=== PATIENT | male | born 1955 | race Caucasian/White ===

== ENCOUNTER 2020-01-08 09:36 | Outpatient (CLI) | payer OTHER, SELFPAY ==
--- NOTE | ~2020-01-08 | US_ITS ---
EXAMINATION: US right upper quadrant DATE: 01/08/2020 10:28 INDICATION: Abnormal liver function tests. TECHNIQUE: Multiple grayscale and Doppler ultrasound images of the abdomen were obtained. COMPARISON: Ultrasound 05/12/2019, CT 05/17/2019 FINDINGS: The visualized portions of the head and body of the pancreas are normal. The liver is navin l without focal lesion. No liver surface nodularity. There is normal flow in main portal vein. The ga llbladder is normal in size. No gallstones or gallbladder wall thickening. There was no sonographic M urphy sign. The common duct is normal and measures 2 mm. IMPRESSION: 1. Normal right upper quadrant ultrasound. Reviewed, dictated and finalized at location B.
== END 2020-01-08 09:37 | disposition home or self-care (01) ==
PROVIDERS: PCP Internal Medicine; Visit Provider Internal Medicine
DX: R74.8 Abnormal levels of other serum enzymes (principal)
CPT/HCPCS: 76705

== ENCOUNTER 2020-03-17 02:21 | Outpatient (CLI) | payer OTHER, SELFPAY ==
[2020-03-17 19:02] LABS: SARS-CoV-2 RNA PCR Negative
== END 2020-03-17 02:22 | disposition home or self-care (01) ==
LOC: ANHCOVIDDT 02:21
PROVIDERS: PCP Internal Medicine; Visit Provider Plastic Surgery
DX: Z01.812 Encounter for preprocedural laboratory examination (principal); Z20.828 Contact with and (suspected) exposure to other viral communicable diseases
CPT/HCPCS: 87635; C9803; U0003

== ENCOUNTER 2020-03-17 08:34 | Outpatient (CLI) | payer OTHER, SELFPAY ==
--- NOTE | 2020-03-17 09:01 | ECG_ITS ---
Measurements Intervals Register Rate: 66 P: 11 NC: 158 QRS: -12 QRSD: 108 T: 13 QT: 366 QTc: 385 Interpretive Statements SINUS RHYTHM LOW QRS VOLTAGE IN PRECORDIAL LEADS POOR R WAVE PROGRESSION, ANTERIOR LEADS BASELINE ARTIFACT- I, II, III, AVR, AVL, AVF BORDERLINE ECG Electronically Signed On 03-17-2020 9:07:49 CDT by Darren Biswas D.O.
[2020-03-17 09:13] LABS: Basophils Absolute Auto 0.1 K/mm3 (0.0-0.1); Eosinophils Absolute Auto 0.3 K/mm3 (0-0.3); Hematocrit 41.7 % (42.0-52.0); Hemoglobin 14.4 g/dL (14.0-18.0); Immature Granulocyte Absolute 0.05 K/mm3 (0.00-0.031); Immature Granulocyte Percent A 0.7 % (0-0.5); Lymphocytes Absolute Auto 2.09 K/mm3 (0.9-3.2); Lymphocytes Percent Auto 29.9 % (18.3-44.2); Mean Corpuscular HGB Conc 34.5 g/dl (32-36); Mean Corpuscular Hemoglobin 31.6 pg (26-34); Mean Corpuscular Volume 91.4 fl (80-100); Mean Platelet Volume 10.6 fl (7.4-10.4); Monocytes Absolute Auto 0.5 K/mm3 (0.1-0.6); Monocytes Percent Auto 7.6 % (2.6-8.5); Neutrophils Percent Auto 56.8 % (45.5-73.1); Platelet Count Result 206 k/mm3 (150-375); Red Blood Count 4.56 M/mm3 (4.6-6.20); Red Cell Distribution Width 13.5 % (11.5-14.5)
[2020-03-17 09:21] LABS: Alanine Aminotransferase 35 U/L (4-50); Albumin Level 4.3 g/dL (3.5-5.1); Alkaline Phosphatase 85 U/L (38-126); Anion Gap 6 mmol/L (8-16); Aspartate Amino Transferase 39 U/L (17-59); Blood Urea Nitrogen 13 mg/dL (9-20); Calcium 9.3 mg/dL (8.4-10.2); Carbon Dioxide 34 mmol/L (22-30); Chloride 100 mmol/L (98-107); Estimated Glomerular Filt Rate > 60; Glucose 124 mg/dL (75-110); Sodium 140 mmol/L (137-145)
== END 2020-03-17 08:35 | disposition home or self-care (01) ==
LOC: ANHSURGERY 08:34
PROVIDERS: Surgery; PCP Internal Medicine; Visit Provider Plastic Surgery
DX: Z01.818 Encounter for other preprocedural examination (principal); K42.9 Umbilical hernia without obstruction or gangrene; I10 Essential (primary) hypertension; R94.31 Abnormal electrocardiogram [ECG] [EKG]
CPT/HCPCS: 36415; 80053; 85025; 86850; 86900; 86901; 93005

== ENCOUNTER 2020-03-19 01:00 | Day surgery (SDC) | payer OTHER, SELFPAY ==
[2020-03-06 11:43] VITALS: BMI 38.5
[2020-03-19] VITALS (12 sets, daily range): BP systolic 93–145; BP diastolic 62–84; PULSE 58–83; RESP 15–21; TEMP 36.1–36.5; O2SAT 90–98
--- NOTE | 2020-03-19 07:06 | WPDHPUPDATE1 ---
History and Physical Update Update Date/Time: 03/19/20 07:06 History and Physical has been reviewed, including an updated exam of the patient. There are NO changes in the patient's condition. Risks, benefits, and alternatives have been discussed and questions answered. Patient agrees to proceed with procedure.
--- NOTE | 2020-03-19 07:07 | WPDHPUPDATE1 ---
History and Physical Update Update Date/Time: 03/19/20 07:07 History and Physical has been reviewed, including an updated exam of the patient. There are NO changes in the patient's condition. Risks, benefits, and alternatives have been discussed and questions answered. Patient agrees to proceed with procedure.
--- NOTE | 2020-03-19 11:19 | WPDHPUPDATE1 ---
History and Physical Update Update Date/Time: 03/19/20 11:19 History and Physical has been reviewed, including an updated exam of the patient. There are NO changes in the patient's condition. Risks, benefits, and alternatives have been discussed and questions answered. Patient agrees to proceed with procedure.
[2020-03-19] MEDS: LACTATED RINGERS 1,000 ML 30 ML IV CONT ×2 (11:20→14:17)
--- NOTE | 2020-03-19 11:27 | WPDANESEPPF ---
Anes - Initial Pre Proc Eval Procedure: Operation Date: 03/19/20 13:00 Proposed Procedures p Excision Neoplasm Unspecified Behavior Left Lower Eyelid with Frozen Section and Local Tissue Transfer - Edgar Agarwal MD s Laparoscopic Umbilical Hernia Repair with Mesh, Possible Open - Renny Multani MD Date/Time: 03/19/20 11:27 Surgeon: Edgar Agarwal MD Pre Op Diagnosis: neoplasm unspec unspecified behavior, umb hernia Patient Data Age: 64 Gender: M Height: 5 ft 2 in Weight: 97 kg Last Vital Signs Temp 97.0 F L 03/19/20 10:58 Pulse 68 03/19/20 10:58 Resp 18 03/19/20 10:58 BP 145/84 H 03/19/20 10:58 Pulse Ox 98 03/19/20 10:58 Allergies Allergy/AdvReac Type Severity Reaction Status Date / Time No Known Allergies Allergy Verified 03/19/20 11:02 Home Medications Medication Instructions Recorded Confirmed Type aspirin [Aspirin Low Dose] 81 mg PO DAILY 05/12/19 03/12/20 History atorvastatin 20 mg PO DAILY 05/12/19 03/12/20 History levothyroxine 75 mcg PO DAILY 05/12/19 03/12/20 History potassium chloride 20 meq PO DAILY 30 Days #30 tablet 05/18/19 03/12/20 Rx lisinopril 10 mg PO DAILY 03/06/20 03/12/20 History multivitamin 1 tablet PO DAILY 03/06/20 03/12/20 History Patient hx anesthesia problems: none Family hx anesthesia problems: none PMFSH Past Medical History Medical History Dyslipidemia (Unknown) History of pancreatitis Hypertension (Unknown) Hypothyroidism Obstructive sleep apnea (Unknown) Umbilical hernia without obstruction and without gangrene (Unknown) Surgical History Surgical History History of hand surgery Right hand surgery after crush injury. Family History Family History Son Diabetes mellitus Father Family history of congestive heart failure Social History Social History Social History: The patient is and lives with his in [place], [place]. 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 He designates his , Nicole, as his surrogate decision-maker and he wishes to be full code. He is a lifelong non-smoker. He drinks alcohol very rarely and on social occasions, maybe a couple times a year. No illicit drug use. Smoking status: Never smoker Spiritual care concerns: No Anes - Eval Final PreProcedure Day of Procedure 03/19/20 11:27 Patient weight: morbidly obese Heart: regular rate and rhythm Lungs: clear to auscultation Airway: Mallampati scale class III Neurological: alert and oriented Last oral intake: >/= 8 hours ASA classification: III Emergent: no Anesthetic plan: proceed Anesthesia type and monitoring: general ETT and standard monitoring Informed Consent: The patient's anesthetic plan and its attendant risks and benefits were discussed with the patient/family/POA. Questions were solicited and answers provided to the satisfaction of the patient/family/POA.
[2020-03-19] MEDS: ACETAMINOPHEN 500 MG TABLET 1000 MG PO (11:30)
[2020-03-19] MEDS: KETOROLAC 15 MG/ML VIAL (*BKC) IV PUSH (11:30)
[2020-03-19] MEDS: ceFAZolin 2 GM/D5W 50 ML 2 GM/50 ML BAG IVPB (11:50)
--- NOTE | 2020-03-19 12:23 | SUR.OPER ---
SPECIMEN GIVEN TO LULA IN PATHOLOGY BY [facility] AT 0527
[2020-03-19] MEDS: BUPIVACAINE/EPINEPHRINE 0.5% 10 ML VIAL 20 ML INFILTRATE (12:46)
[2020-03-19] MEDS: LIDO 1%/EPINEPHRINE 1:100,000 20 ML VIAL INFILTRATE (12:47)
--- NOTE | 2020-03-19 13:27 | PM.OP ---
Procedure Note - Brief Procedure Note - Brief Date of procedure: 03/19/20 Pre-op diagnosis: neoplasm unspec unspecified behavior, umb hernia Post-op diagnosis: same Procedure performed: Dr. Agarwal Plastic Surgery: Excision of BCC of left lower eyelid with FS and FTSG 2.0 sq cm. Anesthesia: GETA Surgeon: Edgar Agarwal MD Estimated blood loss (mL): 1 Drains: No Packing: No Pathology: yes Complications: No immediate complications Condition: stable Disposition: other (The patient was turned over to Dr Multani for his planned other procedure.)
--- NOTE | 2020-03-19 13:33 | PM.PROC ---
Procedure Note - Detailed Date of procedure: 03/19/20 Pre-op diagnosis: neoplasm unspec unspecified behavior, umb hernia Post-op diagnosis: other (BCC of left lower eyelid.) Procedure performed: 2 cm excision of basal cell carcinoma of the left lower eyelid with frozen section and full-thickness skin graft 2 sq cm Description of procedure: The site was marked on the patient's upper cheek over the orbicularis in the holding area. He was taken to the operating room placed supine on the operating table. Time-out was held and confirmed. He was given general anesthesia in preparation for the 2nd part of his surgery today which is umbilical hernia repair by Dr. Multani. The Face was prepped and draped in usual fashion. The site was a nodular basal cell carcinoma and markings were not made. The site was infiltrated with 1% lidocaine with epinephrine. A circular excision was carried out. The most inferior aspect was marked with a suture for 12:00 o'clock. The specimen was sent to pathology. The pathologist reports basal cell carcinoma margins free. This resection had included some orbicularis madison muscle. We attempted to devise a method for direct suture closure of this however the patient's lower eyelid is quite lax as is the lateral canthal tendon. I determined that a full-thickness skin graft would be in his best interest. The left upper neck postauricular area already been prepped. We anesthetized that with 1% lidocaine with epinephrine and removed the full-thickness graft of appropriate size. The wound was closed with intradermal 4-0 Vicryl suture and glue. The graft was carefully defatted and inset with chromic suture including quilting stitches through the midportion. Bleeding was minimal. The patient had been given 2 g of Ancef preop anticipation of his general surgery procedure to follow immediately. No additional prescriptions were given to him by me he was given instructions in wound care and follow-up Anesthesia: GETA Surgeon: Edgar Agarwal MD Estimated blood loss (mL): 1 Drains: No Packing: No Pathology: yes Complications: No immediate complications Condition: stable Disposition: other (Dr Multani continued the anesthesia for his general surgery procedure.)
--- NOTE | 2020-03-19 13:51 | SUR.OPER ---
2nd timeout completed with Dr. Multani at 1329.
--- NOTE | 2020-03-19 14:12 | PM.PROC ---
Procedure Note - Detailed Date of procedure: 03/19/20 Pre-op diagnosis: neoplasm unspec unspecified behavior, umb hernia Umbilical hernia Post-op diagnosis: same Procedure performed: Laparoscopic umbilical hernia repair with mesh Description of procedure: DESCRIPTION OF PROCEDURE: The patient was placed in the supine position on the operative table and after induction of adequate general endotracheal anesthesia by [facility], the entire abdomen was prepped and draped in usual sterile fashion and the head placed slightly up. An OG tube was in place had been placed on suction. An Ioban drape was used to prevent contact of the mesh with the skin during this clean case. Following this, local anesthetic was placed and a spot selected about two fingerbreadths below the costal margin on the left and a small incision made after instilling local anesthetic using 0.25% Marcaine with epinephrine. Following this, a Veress needle technique using the water drop test was completed. Using 2 towel clips on the skin, I carefully elevated the skin and then passed the Veress needle into the abdomen and we could see that the saline droped through the Veress needle easily. CO2 gas was connected and the abdomen was insufflated to 14 mm Hg pressure after starting out at around 9. Following this, 0 degree 5 mm laparoscope was placed inside a 5 mm trocar, which was carefully twisted into the abdomen without difficulty, seeing a open pneumoperitoneum as we entered. Thus, the trocar was removed, the sleeve confirmed to be nicely within the abdomen, and we carefully inspected the abdomen. Careful inspection of the abdomen revealed no inguinal hernias. A small defect in the umbilicus that was actually difficult to see initially, but after placing a 12 mm port in the left lower quadrant under direct vision with the laparoscope, we could see up into a 11 mm defect that had been measured then with an instrument with a known cm marker. There was no incarceration of any omentum or any other adhesions to the underside of the umbilicus. With external compression we can see a little preperitoneal fat drop down from the umbilical hernia defect this was grasped with a [place] dissector and using cautery we removed 2 small pieces of preperitoneal fat from the umbilical hernia defect. This was pre-peritoneal fat and it was removed from the abdomen and passed off the field but not sent as specimen. Following this, we carefully planned by measuring the defect. Our mesh, a circular 11 cm piece of Ventra-lite piece of mesh was chosen, so that we would have 4.5 cm of overlap in all directions over the circular umbilical defect. Following this,after it was hydrated the ventra-lite balloon hernia system mesh was rolled and this was inserted through the 12 mm port after rolling it to protect the absorbable covering on the downside of the mesh. A black silk suture was placed through the blue loop that is used to extract the tubing for the balloon positioning system such that I could grab this and pull it up through the umbilical area with a suture Passer. I used the suture passer after making a small opening with an 11 blade knife after placing local anesthetic directly in the lower center portion of the umbilicus. The suture passer was used to grasp this centering silk stitch on the piece of mesh, and this was pulled up, centering it. Then I inflated the balloon system which brought the mesh up against the anterior abdominal wall centering it nicely with the center of the 11 centimeter piece of mesh over the center of the umbilical defect. Two rows of tacks using the an absorbable Tacker were completed circumferentially at the edge and then about a centimeter back from the edge of the circular piece of mesh. This seemed to give good security to the mesh completely covering the umbilical defect. Once this was completed, we carefully removed the tacker, snipped the tubing on the balloon syste
[2020-03-19] MEDS: fentaNYL CITRATE INJ (*CRX) 100 MCG/2 ML VIAL 25 MCG IV PUSH ×8 (15:03→15:30)
[2020-03-19] MEDS: oxyCODONE HCL (*CRX) 5 MG TAB IR PO (16:10)
== END 2020-03-19 17:21 | disposition home or self-care (01) ==
PROVIDERS: Surgery; PCP Internal Medicine; Visit Provider Plastic Surgery
PROC: (CPT 11642; principal; 2020-03-19 13:00)
PROC: (CPT 49585; 2020-03-19 13:00)
DX: K42.9 Umbilical hernia without obstruction or gangrene (principal); C44.1192 Basal cell carcinoma of skin of left lower eyelid, including canthus; I10 Essential (primary) hypertension; E78.5 Hyperlipidemia, unspecified; E03.9 Hypothyroidism, unspecified; G47.33 Obstructive sleep apnea (adult) (pediatric); Z79.82 Long term (current) use of aspirin; E66.01 Morbid (severe) obesity due to excess calories; Z68.39 Body mass index [BMI] 39.0-39.9, adult
CPT/HCPCS: 49585; 11642; 15260; 88305; 88331; A9270; C1781; J0690; J1100; J1885; J2250; J2405; J2704; J3010; J7120

== ENCOUNTER 2020-12-18 09:47 | Outpatient (CLI) | payer OTHER, SELFPAY ==
--- NOTE | ~2020-12-18 | US_ITS ---
EXAMINATION: US abdomen limited EXAM DATE: 12/18/2020 10:50 INDICATION: Elevated liver enzymes. TECHNIQUE: Multiple grayscale and Doppler images of the abdomen right upper quadrant were obtained (odm y a technologist who performed the scan) and subsequently reviewed. Comparison is made to prior exami nation from 06/09/2019. FINDINGS: The pancreatic head and body are normal in appearance. The pancreatic tail is not visualized. The l iver has normal echogenicity steatosis and contour. There are no focal liver lesions identified. T here is no evidence of intrahepatic biliary duct dilation. Portal venous flow was seen in the hepato pedal, normal direction and has normal Doppler waveform. No right-sided hydronephrosis. Common bile duct measures 4 mm, which is normal. The gallbladder wall is normal in thickness, with ex pected amount of distention. No sonographic evidence of pericholecystic fluid. There is no cholelit hiases. Technologist performing exam reports patient did not demonstrate sonographic Juan's sign. Please note that this sign is less reliable in patients who have received pain medication. IMPRESSION: Interval development of hepatic steatosis. Reviewed, dictated and finalized at location A.
[2020-12-18 11:10] LABS: Iron 113 ug/dL (49-181)
[2020-12-18 11:13] LABS: Alanine Aminotransferase 58 U/L (4-50); Albumin Level 4.4 g/dL (3.5-5.1); Alkaline Phosphatase 128 U/L (38-126); Anion Gap 11 mmol/L (8-16); Aspartate Amino Transferase 56 U/L (17-59); Bilirubin,Total 1.2 mg/dL (0.2-1.3); Blood Urea Nitrogen 13 mg/dL (9-20); Carbon Dioxide 28 mmol/L (22-30); Chloride 100 mmol/L (98-107); Estimated Glomerular Filt Rate > 60; Glucose 110 mg/dL (65-110); Potassium 4.2 mmol/L (3.4-5.0); Sodium 139 mmol/L (137-145)
[2020-12-18 11:20] LABS: Percent Iron Saturation 36 % (20-50)
[2020-12-18 11:32] LABS: Hepatitis B Surface Antigen Negative (Negative)
[2020-12-18 11:39] LABS: HAV RESULT Negative (Negative); Hepatitis B Core IgM Result Negative (Negative)
[2020-12-18 11:50] LABS: Hepatitis C Virus Antibody Negative (Negative)
== END 2020-12-18 09:48 | disposition home or self-care (01) ==
PROVIDERS: PCP Internal Medicine; Visit Provider Internal Medicine
DX: R74.8 Abnormal levels of other serum enzymes (principal); K76.0 Fatty (change of) liver, not elsewhere classified
CPT/HCPCS: 36415; 76705; 80053; 80074; 82728; 83540; 83550

== ENCOUNTER 2024-05-01 10:17 | Emergency (ER) | payer MEDICARE, SELFPAY ==
--- NOTE | ~2024-05-01 | XR_ITS ---
EXAMINATION: XR finger 1st LT min 2V DATE: 05/01/2024 11:36 INDICATION: Left thumb pain post fall from ladder TECHNIQUE: Dorsal palmar, lateral and oblique views of the left first digit were obtained COMPARISON: None FINDINGS: Bone alignment is normal. No fracture. Mild osteoarthritis at the first carpometacarpal, metacarpopha langeal and interphalangeal joints. Soft tissues are unremarkable. IMPRESSION: 1. 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 No acute osseous abnormality. Reviewed, dictated and finalized at location A. LEX MANAGER IMPRESSION: 1. 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 No acute osseous abnorm ality.
--- NOTE | ~2024-05-01 | CT_ITS ---
EXAMINATION: CT chest abdomen pelvis w con DATE: 05/01/2024 11:34 INDICATION: Right chest pain and right upper quadrant abdominal pain post fall down ladder TECHNIQUE: Computed tomography (CT) of the chest, abdomen, and pelvis was performed with 100 mL Omnip aque-350 intravenous contrast. Automated exposure control and iterative reconstruction technique were employed. The dose-length product was 1525.91 mGy-cm. COMPARISON: 05/17/2019 FINDINGS: CHEST CT: Mild bilateral dependent and basilar atelectasis. No pneumonia, pulmonary edema, pleural effusion or pneumothorax. Calcified left lower lobe nodule along with calcified mediastinal and left hilar lymph nodes consistent with old granulomatous disease. Heart size is normal. Aortic valve calcification. No pericardial effusion. Thoracic aorta is normal in caliber with no dissection or acute traumatic aort ic injury. No pathologically enlarged thoracic lymphadenopathy. Mild thoracic dextrocurvature with mo derate spondylosis. No acute osseous abnormality. ABDOMEN/PELVIS CT: Liver, gallbladder, pancreas, bilateral adrenal glands and left kidney are normal. Subcentimeter low- attenuation cyst at the mid right kidney. There are few tiny splenic calcification consistent with ol d granulomatous disease. Small gas and fluid-filled duodenal diverticulum arising from the third port ion of the duodenum. There is mild colonic diverticulosis with a sigmoid predominance. There is no a djacent inflammatory change to suggest diverticulitis. Normal appendix. No bowel obstruction. Bladde r is normal. Mild prostatomegaly. No free intraperitoneal gas or fluid. No pathologically enlarged ab dominal or pelvic lymphadenopathy. Mild lumbar dextrocurvature and mild levocurvature centered at the thoracolumbar junction. There is moderate thoracic spondylosis. No acute osseous abnormality. IMPRESSION: 1. No acute fracture or acute vascular or visceral organ injury in the chest, abdomen or pelvis. Reviewed, dictated and finalized at location A. E CONSULTANT IMPRESSION: 1. No acute fracture or acute vascular or visceral organ injury in the chest, a bdomen or pelvis.
[2024-05-01 10:18] VITALS: BP 141/85; PULSE 80; RESP 18; TEMP 36.1; O2SAT 94
--- NOTE | 2024-05-01 10:31 | ED.FALL ---
HPI - Fall General Chief Complaint: Fall Stated Complaint: fall Time Seen by Provider: 05/01/24 10:24 Source: patient History of Present Illness HPI Narrative: Patient is 68 years old white male was on top of a ladder 11 feet above the ground, the ladder slid very fast on the wall, landed flat on the ground patient was on top of the ladder, complaining of right lower ribs, right upper quadrant pain, left thumb pain. Patient denies head injury, face injury, neck injury or back injury. 1 hour prior to arrival. Patient came to the ED by private car walking Related Data Home Medications Medication Instructions Recorded Confirmed aspirin 81 mg tablet,delayed 81 mg PO DAILY 05/12/19 05/01/24 release (Bertram Low Dose Aspirin) atorvastatin 20 mg tablet 40 mg PO DAILY 05/12/19 05/01/24 lisinopril 20 mg tablet 10 mg PO DAILY 03/06/20 05/01/24 levothyroxine 100 mcg tablet 100 mcg PO DAILY 07/29/22 05/01/24 apple cider vinegar 500 mg tablet 500 mg PO DAILY 07/28/23 05/01/24 metformin 500 mg tablet,extended 500 mg PO DAILY 05/01/24 05/01/24 release 24 hr Allergies Allergy/AdvReac Type Severity Reaction Status Date / Time No Known Allergies Allergy Verified 05/01/24 10:26 Review of Systems Review of Systems: All systems reviewed & are unremarkable except as noted in HPI and below PMFSH Past Medical History Medical History Dyslipidemia (Unknown) History of pancreatitis Hypertension (Unknown) Hypothyroidism Obstructive sleep apnea (Unknown) Surgical History Surgical History History of hand surgery Right hand surgery after crush injury. Umbilical hernia without obstruction and without gangrene (Unknown) Family History Family History Son Diabetes mellitus Father Family history of congestive heart failure Social History Social History Social History: The patient is and lives with his in [place], [place]. 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 He designates his , Nicole, as his surrogate decision-maker and he wishes to be full code. He is a lifelong non-smoker. He drinks alcohol very rarely and on social occasions, maybe a couple times a year. No illicit drug use. Smoking status: Never smoker Spiritual care concerns: No Exam Narrative: General appearance: Well-developed, well-nourished Skin: Normal color Head: Normocephalic, nontraumatic Eyes: Clear conjunctiva ENT: Oropharynx normal, ears normal, nose normal Neck: Supple, nontender Chest and respiratory: Airway patent, no respiratory distress, no accessory muscle use, right lower ribs tenderness, no bruises or swelling or rash Heart: Regular rate/rhythm Abdomen: Soft, right quadrant tenderness, no bruises or swelling or rash, no organomegaly, quiet bowel sounds Vascular: Normal peripheral pulses, normal capillary refill. Musculoskeletal: Normal range of motion, nontender back, left thump bruised, good range of motion, no swelling or deformity Neurologic: Alert and oriented ?3, [employer] MANAGER is normal as tested, no gross motor deficit Course Vital Signs Vital signs: Vital Signs Temperature 36.1 C L 05/01/24 10:18 Pulse Rate 80 05/01/24 10:18 Respiratory Rate 18 05/01/24 10:18 Blood Pressure 141/85 H 05/01/24 10:18 Pulse Oximetry 94 05/01/24 10:18 Oxygen Delivery Room Air 05/01/24 10:18 Temperature 36.1 C L 05/01/24 10:18 Pulse Rate 71 05/01/24 11:13 Respiratory Rate 16 05/01/24 11:13 Blood Pressure 115/64 05/01/24 11:13 Pulse Oximetry 91 05/01/24 11:13 Oxygen Delivery Room Air 05/01/24 11:13 MDM - Fall MDM Narrative Medical decision making narrative: patient had a fall roughly 6-7 feet above the ground complaining of right lower ribs right upper quadrant pain Vital signs stable Physical examination showing tenderness right upper quadrant right lower ribs without a bruises, left thumb tenderness and bruises Differential diagnosis include rib fracture, pulmonary contusion, hemothorax, liver injury, diaphragmatic injury, contusion, left thumb fracture versus contusion Blood workup today includes CBC, CMP and lipase showed no acute abnormalities CT chest, abdomen and pelvis with IV contrast showed no acute abnormalities X-ray of the left thumb showed no fracture. The pt was discharged to home.the pt,s condition upon discharge was fair,education was provided to the pt in reference to the final impression,discharge study results,treatment,prognosis and need for follow up . Differential Diagnosis Differential diagnosis: Likely other (As above) Medical Records Attestation: I reviewed the patient's medical records. Lab Data Attestation: I reviewed the patient's lab results. 05/01/24 10:42 05/01/24 10:42 Labs: Lab Results 05/01/24 Range/Units 10:42 WBC 10.4 (4.8-10.8) K/mm3 RBC 5.45 (4.70-6.10) M/mm3 Hgb 17.0 H (12.4-15.3) g/dL Hct 48.8 H (37.0-46.0) % MCV 89.5 (78.0-102.0) fL MCH 31.2 H (27.0-31.0) pg MCHC 34.8 (32-36) g/dL RDW 12.7 (11.6-14.4) % Plt Count 227 (150-420) K/mm3 MPV 10.0 (8.7-11.0) fl Immature Gran % (Auto) 0.7 H (0.0-0.0) % Neut % (Auto) 70.9 H (50.0-70.0) % Lymph % (Auto) 18.8 (18.0-42.0) % Pleas[place] % (Auto) 6.4 (2.0-11.0) % Eos % (Auto) 2.7 (1.0-6.0) % Baso % (Auto) 0.5 (0.0-1.0) % Lymph # (Auto) 1.95 (1.10-4.50) K/mm3 [place] # (Auto) 0.66 (0.10-0.90) K/mm3 Eos # (Auto) 0.28 (0.02-0.50) K/mm3 Baso # (Auto) 0.05 (0.00-0.10) K/mm3 Abs Immat Gran (auto) 0.07 H (0.00-0.00) K/mm3 Absolute Neuts (auto) 7.37 H (1.70-7.20) K/mm3 Absolute Nucleated RBC 0.00 (0.00-0.00) K/mm3 Nucleated RBC % 0.0 (0-0.0) % Sodium 137 (136-145) mmol/L Potassium 4.1 (3.5-5.1) mmol/L Chloride 102 (98-108) mmol/L Carbon Dioxide 29 (21-32) mmol/L Anion Gap 6 (4-12) mmol/L BUN 14 (7-18) mg/dL Creatinine 0.86 (0.70-1.30) mg/dL Estim Creat Clear Calc 77 ml/min Estimated GFR > 60 (59 - ) Glucose 116 H (70-99) mg/dL Calculated Osmolality 285 (285-295) mOsm/kg Calcium 9.3 (8.5-10.1) mg/dL Total Bilirubin 0.7 (0.00-1.00) mg/dL AST 23 (15-37) U/L ALT 36 (16-63) U/L Alkaline Phosphatase 96 (46-116) U/L Total Protein 6.6 (6.4-8.2) g/dL Albumin 3.8 (3.4-5.0) g/dL Lipase 49 (16-77) U/L Imaging Data Radiologist's impression: Impressions Chest/Abdomen/Pelvis CT 05/01/24 11:36 IMPRESSION: 1. No acute fracture or acute vascular or visceral organ injury in the chest, abdomen or pelvis. Finger X-Ray 05/01/24 11:41 IMPRESSION: 1. 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 No acute osseous abnormality. Critical Care Time Critical Care Time Critical Care Time: No Discharge Plan Discharge Clinical Impression: Contusion, Fall Patient Disposition: Home, Self-Care Condition: Stable Instructions: Contusion in Adults (ED) Additional Instructions: Return if symptoms are worsening , call your family physician for appointment, take Tylenol, ibuprofen as as needed for aches and pain, continue home medications. Prescriptions: No Action metformin 500 mg Tablet Extended Release 24 Hr 500 mg PO DAILY levothyroxine 100 mcg tablet 100 mcg PO DAILY apple cider vinegar 500 mg tablet 500 mg PO DAILY lisinopril 20 mg tablet 10 mg PO DAILY atorvastatin 20 mg tablet 40 mg PO DAILY aspirin [Berrtam Low Dose Aspirin] 81 mg Tablet,Delayed Release (Dr/Ec) 81 mg PO DAILY potassium chloride 20 mEq tablet extended release 20 meq PO DAILY 30 Days Qty: 30 0RF Follow-up/Referrals: Ced,Liliane Bruce MD [Primary Care Provider] -
[2024-05-01 10:47] LABS: Basophils Absolute Auto 0.05 K/mm3 (0.00-0.10); Basophils Percent Auto 0.5 % (0.0-1.0); Eosinophils Absolute Auto 0.28 K/mm3 (0.02-0.50); Eosinophils Percent Auto 2.7 % (1.0-6.0); Hematocrit 48.8 % (37.0-46.0); Immature Granulocyte Absolute 0.07 K/mm3 (0.00-0.00); Immature Granulocyte Percent A 0.7 % (0.0-0.0); Lymphocytes Absolute Auto 1.95 K/mm3 (1.10-4.50); Lymphocytes Percent Auto 18.8 % (18.0-42.0); Mean Corpuscular HGB Conc 34.8 g/dL (32-36); Mean Corpuscular Hemoglobin 31.2 pg (27.0-31.0); Mean Corpuscular Volume 89.5 fL (78.0-102.0); Monocytes Absolute Auto 0.66 K/mm3 (0.10-0.90); Monocytes Percent Auto 6.4 % (2.0-11.0); Neutrophils Absolute Auto 7.37 K/mm3 (1.70-7.20); Neutrophils Percent Auto 70.9 % (50.0-70.0); Platelet Count Result 227 K/mm3 (150-420); Red Blood Count 5.45 M/mm3 (4.70-6.10); Red Cell Distribution Width 12.7 % (11.6-14.4); White Blood Count 10.4 K/mm3 (4.8-10.8)
[2024-05-01 11:04] LABS: Alanine Aminotransferase 36 U/L (16-63); Albumin Level 3.8 g/dL (3.4-5.0); Alkaline Phosphatase 96 U/L (46-116); Anion Gap 6 mmol/L (4-12); Aspartate Amino Transferase 23 U/L (15-37); Bilirubin,Total 0.7 mg/dL (0.00-1.00); Blood Urea Nitrogen 14 mg/dL (7-18); Calcium 9.3 mg/dL (8.5-10.1); Carbon Dioxide 29 mmol/L (21-32); Chloride 102 mmol/L (98-108); Estimated CRCL calculation 77 ml/min; Estimated Glomerular Filt Rate > 60; Glucose 116 mg/dL (70-99); Lipase 49 U/L (16-77); Osmolality Calculated 285 mOsm/kg (285-295); Potassium 4.1 mmol/L (3.5-5.1); Sodium 137 mmol/L (136-145); Total Protein 6.6 g/dL (6.4-8.2)
[2024-05-01 11:13] VITALS: BP 115/64; PULSE 71; RESP 16; O2SAT 91
[2024-05-01] MEDS: ONDANSETRON INJ 4 MG/2 ML VIAL IV PUSH (11:17)
[2024-05-01] MEDS: MORPHINE SULFATE (*CRX) 4 MG/ML INJ IV PUSH (11:19)
[2024-05-01 12:00] VITALS: BP 118/65; PULSE 74; RESP 14; O2SAT 99
[2024-05-01 12:30] VITALS: BP 121/80; PULSE 63; RESP 16; TEMP 36.8; O2SAT 97
== END 2024-05-01 12:30 | disposition home or self-care (01) ==
PROVIDERS: Emergency Provider Emergency Medicine; PCP Internal Medicine
DX: T14.8XXA Other injury of unspecified body region, initial encounter (principal); W17.89XA Other fall from one level to another, initial encounter; I10 Essential (primary) hypertension; E78.5 Hyperlipidemia, unspecified; E03.9 Hypothyroidism, unspecified; G47.33 Obstructive sleep apnea (adult) (pediatric); Z79.82 Long term (current) use of aspirin; Z79.84 Long term (current) use of oral hypoglycemic drugs
CPT/HCPCS: 36415; 71260; 73140; 74177; 80053; 83690; 85025; 96374; 96375; 99284; J2270; J2405; Q9967

== ENCOUNTER 2024-12-14 09:54 | Emergency (ER) | payer MEDICARE, SELFPAY ==
--- NOTE | ~2024-12-14 | XR_ITS ---
EXAMINATION: SACRUM/COCCYX DATE: 12/14/2024 10:37 INDICATION: Tail bone pain and low back pain after fall TECHNIQUE: Three views sacrum/coccyx FINDINGS: Comparison to CT dated 05/01/2024 There is no displaced fracture of the sacrum. The coccyx demonstrates overall normal morphology with out acute angulation.There is mild osteitis pubis. IMPRESSION: 1. No acute displaced osseous abnormality of the sacrum. Suspicion for occult or nondisplaced sacral fracture can either be evaluated with CT or MRI. 2. Grossly normal morphology to the coccyx without acute angulation. However, due to the wide range of normal variation of the coccyx, acute injury would be best evaluated by clinical examination and patient's symptoms. Reviewed, dictated and finalized at location A.
--- NOTE | ~2024-12-14 | XR_ITS ---
XR pelvis 1-2V 12/14/2024 10:37 Indication: Status post fall. Back pain. Procedure: AP view of the pelvis Comparison: No prior studies for comparison. Findings: Pelvic rings intact. No fracture, subluxation or dislocation. Sacral foramen are symmetric. No fracture, subluxation or dislocation. No soft tissue abnormality. No foreign bodies. Impression: 1: No acute fracture. Reviewed, dictated and finalized at location A. Impression: 1: No acute fracture.
--- NOTE | ~2024-12-14 | XR_ITS ---
XR foot RT min 3V 12/14/2024 10:37 Indication: Right foot pain after fall Procedure: 3 views right foot and 3 views right ankle Comparison: No prior studies for comparison. Findings: No fracture, subluxation or dislocation. No significant soft tissue abnormality. No foreign bodies. Lisfranc joint intact. Impression: 1: No acute fracture. Reviewed, dictated and finalized at location A. Impression: 1: No acute fracture.
--- NOTE | ~2024-12-14 | XR_ITS ---
XR lumbar spine 2-3V 12/14/2024 10:37 Indication: Back pain Procedure: 3 views lumbar spine Comparison: No prior studies for comparison. Findings: There is levoscoliosis centered at the thoracolumbar junction. No fracture, subluxation or dislocation. There is disc narrowing at all lumbar levels. There is facet hypertrophy of the mid and lower lumbar spine. No evidence for spondylolisthesis. Sacral foramen are symmetric. No acute fractur e or traumatic malalignment. Impression: 1: Moderate lumbar spondylosis with levoscoliosis centered at the thoracolumbar junction. Reviewed, dictated and finalized at location A. Impression: 1: Moderate lumbar spondylosis with levoscoliosis centered at the thoracolumbar junction.
--- NOTE | ~2024-12-14 | XR_ITS ---
XR ankle RT min 3V 12/14/2024 10:37 Indication: 3 views right ankle Procedure: No prior studies for comparison. Comparison: 12/14/2024 Findings: Ankle mortise intact. No fracture, subluxation or dislocation. No soft tissue abnormality. No foreign bodies. Talar dome is normal. Impression: 1: No acute bone or joint abnormality. Reviewed, dictated and finalized at location A. Impression: 1: No acute bone or joint abnormality.
[2024-12-14 09:55] VITALS: BP 147/82; PULSE 71; RESP 18; TEMP 36.6; O2SAT 93
--- OUTSIDE RECORDS SUMMARY | 2024-12-14 09:57 | XMS_ITS | Clinical Summary ---
Author Organization [facility] [employer] Address [address] [place] [address] Care Team Providers Care Supervisor Counseling And Guidance Name Role Phone Liliane Coughlin MD Primary Care Provider + Angus De La Vega MD Unavailable Allergies No known active allergies Medications atorvastatin (LIPITOR) 40 mg tablet Take 1 tablet (40 mg total) by mouth daily 11/22/2020 Active lisinopriL (PRINIVIL,ZESTRI L) 10 mg tablet Take 1 tablet (10 mg total) by mouth daily 11/26/2020 Active potassium chloride ER 20 mEq CR tablet Take 1 tablet (20 mEq total) by mouth daily 11/26/2020 Active apple cider vinegar 300 mg tablet Take by mouth daily Active polycarbophil (FIBERCON) 625 mg tablet Take 1 tablet (625 mg total) by mouth daily Active levothyroxine (SYNTHROID) 100 mcg tablet 120 mcg 07/08/2022 Active metFORMIN XR (GLUCOPHAGE XR) 500 mg 24 hr tablet 1 tablet (500 mg total) 01/12/2024 Active Active Problems Problem Noted Date Diagnosed Date Metabolic dysfunction-associ ated steatotic liver disease (MASLD) 08/14/2023 Assessment & Plan (08/12/2024 6:27 PM CDT): Based on hepatic steatosis on imaging and features of the metabolic syndrome. I discussed weight loss as the most effective means of decreasing hepatic steatosis, minimizing liver injury, and preventing progressive hepatic fibrosis. I suggested ongoing efforts at weight loss through caloric restriction and regular exercise. I gave him a weight loss goal of 10-15 lb over the course of the next year. He will return in 1 year or when clinically indicated. Dyslipidemia 12/16/2021 Acquired hypothyroidism 12/16/2021 Sensorineural hearing loss (SNHL) of both ears 0 12/21/2020 Obstructive sleep apnea Immunizations Immunization Administration Dates Next Due Influenza, Quadrivalent, Rec ombinant, Egg Free, Preservative Free, Intramuscular 05/30/2018 Influenza, Quadrivalent, Spl it, Intramuscular 04/15/2014 Influenza, Quadrivalent, Spl it, Preservative Free, Intramuscular 07/07/2022,06/15/2021,06/03/2020,07/08,05/18/2017,05/02/2016,04/30/2015 Pneumococcal Conjugate Pcv20 07/07/2022 Tdap 12/30/2021 Surgical History Surgery Date Site/Laterality Comments HERNIA REPAIR 01/27/2021 - 02/25/2021 CHOLECYSTECTOMY 12/16/2021 COLONOSCOPY Medical History Medical History Date Comments Cancer (HCC) Hypertension Thyroid disease GERD (gastroesophageal reflux disease) Colon polyp Family History Medical History Relation Name Comments No Known Problems Father No Known Problems Mother Relation Name Status Comments Father Mother Social History Tobacco Use Types Packs/Day Years Used Date Smoking Tobacco: Never Tobacco Cessation:Counseling Given: Not Answered AUDIT-C Answer Date Recorded Q1: How often do you have a drink containing alc ohol? 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 Gender Identity Not on file Sexual Orientation Not on file Obstetrics History Last Filed Vital Signs Vital Sign Reading Time Taken Comments Blood Pressure 133/75 08/12/2024 9:50 AM CDT Pulse 76 08/12/2024 9:50 AM CDT Temperature 36.4 C (97.5 F) 12/27/2021 2:42 PM CDT Respiratory Rate 27 12/27/2021 3:42 PM CDT Oxygen Saturation 95% 12/27/2021 3:42 PM CDT Inhaled Oxygen Concentration - - Weight 99.3 kg (219 lb) 08/12/2024 9:50 AM CDT Height 160 cm (5' 3) 08/12/2024 9:50 AM CDT Body Mass Index 38.79 08/12/2024 9:50 AM CDT Plan of Treatment Health Maintenance Due Date Last Done Comments Colon Cancer Screening-Colonoscopy 1955 Depression Screening 1955 Hepatitis C Screening 1955 Prostate Cancer Screening-PSA 1957 Hepatitis B Screening 09/19/1975 Zoster Vaccine (1 of 2) 09/19/2007 Well Visit 65+ 2022 Fall Risk Assessment 12/27/2022 12/27/2021 Covid-19 Vaccine (2 - 2023-2 5 season) 2024 09/03/2020 DTaP/Tdap/Td Vaccine (2 - Td or Tdap) 12/31/2031 12/30/2021 Pneumococcal vaccine 65+ Completed 07/07/2022 Influenza Vaccine Completed 03/04/2024, , 07/07/2022, Additional history exists Insurance [facility] CHOICE PLUS COMMERCIAL GENERIC ROULA [place]AE[place] [id number] [facility] CHOICE PLUS COMMERCIAL GENERIC Advance Directives For more information, please contact: [phone] * Full Code (Latest Code Status on File) Date Activated Date Inactivated Comments 12/27/2021 12:19 PM 12/27/2021 8:09 PM * Full Code Date Activated Date Inactivated Comments 12/15/2021 10:32 PM 12/17/2021 5:19 PM Care Teams Supervisor Counseling And Guidance Relationship Specialty Start Date End Date Liliane Coughlin MD PCP - General Internal Medicine 12/10/20 Angus De La Vega MD Consulting Physician General Surgery 12/17/21
--- OUTSIDE RECORDS SUMMARY | 2024-12-14 09:57 | XMS_ITS | Referral Summary ---
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 Gender Identity Not on file Sexual Orientation Not on file Last Filed Vital Signs Vital Sign Reading [...] 08/12/2024 9:50 AM CDT Plan of Treatment Not on file Insurance [facility] MEDICARE ADVANTAGE [facility] CHOICE PLUS COMMERCIAL GENERIC [facility] CHOICE PLUS COMMERCIAL GENERIC Advance Directives For more information, please contact: [phone] * Full Code (Latest Code Status on File) Date Activated Date Inactivated Comments 12/27/2021 12:19 PM 12/27/2021 8:09 PM * Full Code Date Activated Date Inactivated Comments 12/15/2021 10:32 PM 12/17/2021 5:19 PM Care Teams Technology Coordinator Relationship Specialty Start Date End Date Liliane Coughlin MD PCP - General Internal Medicine 12/10/20 Angus De La Vega MD Consulting Physician General Surgery 12/17/21
--- OUTSIDE RECORDS SUMMARY | 2024-12-14 09:57 | XMS_ITS | Encounter Summary ---
Author Organization 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 Gender Identity Not on file Sexual Orientation Not on file documented as of this encounter Plan of Treatment Not on file documented as of this encounter Procedures Procedure Name Priority Date/Time Associated Diagnosis Comments GI - RESULT 06/25/2019 documented in this encounter Results * GI - RESULT (06/25/2019) Anatomical Region Laterality Modality Other us Provider Scanning Final Result documented in this encounter Visit Diagnoses Not on filedocumented in this encounter Care Teams Director Social Service Relationship Specialty Start Date End Date Liliane Coughlin MD PCP - General Internal Medicine 12/10/20 Angus De La Vega MD Consulting Physician General Surgery 12/17/21 documented as of this encounter
--- NOTE | 2024-12-14 10:00 | ED_ITS ---
HPI - Fall General Chief Complaint: Fall Stated Complaint: fall off roof Time Seen by Provider: 12/14/24 10:00 Source: patient Mode of arrival: ambulatory Limitations: no limitations History of Present Illness HPI Narrative: 69 year old male presents to the Emergency Department complaining of fall. Patient was putting roof on metal shed and it became wet and he slid off, falling approximately 8 feet. Patient states he landed on his right side. Patient complains of right ankle and tailbone pain. Denies striking head, loss of consciousness. Denies head or neck pain. Denies chest, rib, back or abdominal pains. MD complaint: fall Onset (ago): minute(s) Fall from: from height (distance) (8 feet) Fall witnessed: yes, by family Place fall occurred: home Loss of consciousness: none Location of injury: buttocks (coccyx) and other (right ankle) Related Data Home Medications ?Medication ?Instructions ?Recorded ?Confirmed ?Last Taken ?Type aspirin 81 mg tablet,delayed 81 mg PO DAILY 05/12/19 09/13/24 Unknown History release (Bertram Low Dose Aspirin) apple cider vinegar 500 mg tablet 500 mg PO DAILY 07/28/23 09/13/24 Unknown History metformin 500 mg tablet,extended 500 mg PO DAILY 05/01/24 09/13/24 Unknown History release 24 hr atorvastatin 40 mg tablet 40 mg PO DAILY 09/13/24 09/13/24 Unknown History levothyroxine 112 mcg tablet 112 mcg PO DAILY 09/13/24 09/13/24 Unknown History lisinopril 10 mg tablet 10 mg PO DAILY 09/13/24 09/13/24 Unknown History Allergies Allergy/AdvReac Type Severity Reaction Status Date / Time No Known Allergies Allergy Verified 12/14/24 11:10 Review of Systems Review of Systems: All systems reviewed & are unremarkable except as noted in HPI and below Constitutional: Constitutional: Reports as per HPI Eyes: Eyes: Reports as per HPI ENT: Reports system reviewed and no additional complaints, except as documented Cardiovascular: Cardiovascular: Reports as per HPI and Denies chest pain Respiratory: Respiratory: Reports as per HPI and Denies dyspnea Gastrointestinal: Gastrointestinal: Reports as per HPI and Denies abdominal pain Genitourinary: Genitourinary: Reports no additional male genitourinary complaints Musculoskeletal: Musculoskeletal: Reports no additional musculoskeletal complaints, Denies back pain and Reports arthralgias (right ankle) Integumentary/Breasts: Skin/Breast: Reports system reviewed and no additional complaints, except as docu Neurologic: Reports system reviewed and no additional complaints, except as documented, Denies dizziness, Denies syncope, Denies headache(s), Denies focal w eakness and Denies numbness PMFSH Past Medical History Medical History History of pancreatitis Hypothyroidism Obstructive sleep apnea (Unknown) Dyslipidemia (Unknown) Hypertension (Unknown) Surgical History Surgical History Umbilical hernia without obstruction and without gangrene (Unknown) History of hand surgery Right hand surgery after crush injury. Family History Family History Son Diabetes mellitus Father Family history of congestive heart failure Social History Social History Social History: The patient is and lives with his in [place], [place]. 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 He designates his , Nicole, as his surrogate decision-maker and he wishes to be full code. He is a lifelong non-smoker. He drinks alcohol very rarely and on social occasions, maybe a couple times a year. No illicit drug use. Smoking status: Never smoker Spiritual care concerns: No Exam Const: General: healthy appearing Nutritional Appearance: obese Or ientation/consciousness: patient oriented x3 Limitations: no limitations HENMT: Head: normal to inspection Ears: external ears normal Face/Nose/Sinus: Normal external nose present Face and sinus: normal facial exam Mouth: Yes Normal oral and palatal mucosa present Teeth and gingiva: dentition normal Throat: posterior oropharynx normal Eyes: Pupils: Equal, round and reactive pupils present EOM: EOMs intact bilaterally Direct Ophthalmoscopy: no photophobia Neck: Neck: normal visual inspection Other: non-tender to palpation Chest: Chest palpation & inspection: normal inspection of the chest and no tenderness Resp: Effort & Inspection: normal respiratory effort Auscultation: clear to auscultation bilaterally Cardio: Rate: regular rate Rhythm: regular rhythm GI: Inspection: non-distended Other: non-tender to palpation Skin: General skin exam: normal color Rashes: no rashes Wounds: no wou nds Neuro: General: patient oriented x3, moves all extremities, no meningeal signs, no focal motor deficits and CN's II-XI intact bilaterally Cranial nerves: Yes Nystagmus not present Speech: normal speech Extrem: Other: tender to palpation right ankle, no obvious deformity, erythema, edema, contusion, ecchymosis, NV intact Course Vital Signs Vital signs: Vital Signs Temperature 36.6 C 12/14/24 09:55 Pulse Rate 71 12/14/24 09:55 Respiratory Rate 18 12/14/24 09:55 Blood Pressure 147/82 H 12/14/24 09:55 Pulse Oximetry 93 12/14/24 09:55 Oxygen Delivery Room Air 12/14/24 09:55 Temperature 36.6 C 12/14/24 09:55 Pulse Rate 71 12/14/24 09:55 Respiratory Rate 18 12/14/24 09:55 Blood Pressure 147/82 H 12/14/24 09:55 Pulse Oximetry 93 12/14/24 09:55 Oxygen Delivery Room Air 12/14/24 09:55 MDM - Fall MDM Narrative Medical decision making narrative: 69 y/o male presents to the ED c/o 8 foot fall when he slid off metal shed roof. States landed on right side. Complains of right ankle and tailbone pain. Denies striking head, LOC, head or neck pain, chest pain, back or abdominal pain. PE: tender primarily at lateral R malleolus / ankle and coccyx region. XR L-spine: no acute findings XR Pelvis: no acute findings XR Sacrum/Coccyx: no acute findings XR R Ankle: no acute findings XR R Foot: no acute findings Tx: marc wrap R ankle *reviewed and discussed results with patient and his family. Discussed further management. Patient voices understanding and agreement. Patient declines Rx for analgesic and crutches. Instructions Discharge Plan Discharge Clinical Impression: Fall, Right ankle sprain, Contusion of coccyx Patient Disposition: Home Condition: Stable Instructions: Ankle Sprain (ED), Coccyx Injury (ED), Contusion in Adults (ED) Additional Instructions: Marc wrap, Ice and Elevate right ankle for swelling Non-weight bearing right ankle x 48 hours (crutches), then as tolerated (pain- free) Donut pillow for comfort Tylenol, Ibuprofen and Aleve as needed Follow up Primary Care Physician Patient Language: Venezuelan Prescriptions: No Action metformin 500 mg Tablet Extended Release 24 Hr 500 mg PO DAILY levothyroxine 112 mcg tablet 112 mcg PO DAILY lisinopril 10 mg tablet 10 mg PO DAILY atorvastatin 40 mg tablet 40 mg PO DAILY apple cider vinegar 500 mg tablet 500 mg PO DAILY aspirin [Bertram Low Dose Aspirin] 81 mg Tablet,Delayed Release (Dr/Ec) 81 mg PO DAILY potassium chloride 20 mEq tablet extended release 20 meq PO DAILY 30 Days Qty: 30 0RF Follow-up/Referrals: UNKNOWN,DOCTOR [Non-Staff] - Tay Donnelly MD [Physician] - Time of Disposition: 11:32
--- OUTSIDE RECORDS SUMMARY | 2024-12-14 10:56 | XMS_ITS | Referral Summary ---
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 Gender Identity Not on file Sexual [...] Plan of Treatment Not on file Insurance [facility] MEDICARE ADVANTAGE [facility] Address: [address] [address] [place] [address] [facility] CHOICE PLUS [facility]/PPO Address: [address] [address] [place] [address] COMMERCIAL GENERIC [facility] CHOICE PLUS [facility] HMO/PPO Address: [address] [address] [place] [address] COMMERCIAL GENERIC Advance Directives For more information, please contact: [phone] * Full Code (Latest Code Status on File) Date Activated Date Inactivated Comments 12/27/2021 12:19 PM 12/27/2021 8:09 PM * Full Code Date Activated Date Inactivated Comments 12/15/2021 10:32 PM 12/17/2021 5:19 PM Care Teams Firestopper Technician Relationship Specialty Start Date End Date Liliane Coughlin MD PCP - General Internal Medicine 12/10/20 Angus De La Vega MD Consulting Physician General Surgery 12/17/21
--- OUTSIDE RECORDS SUMMARY | 2024-12-14 10:56 | XMS_ITS | Clinical Summary ---
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 Gender Identity Not on file Sexual Orientation [...] 03/04/2024, , 07/07/2022, Additional history exists Insurance [facility] CHOICE PLUS COMMERCIAL GENERIC [place] [id number] [facility] CHOICE PLUS COMMERCIAL GENERIC Advance Directives For more information, please contact: [phone] * Full Code (Latest Code Status on File) Date Activated Date Inactivated Comments 12/27/2021 12:19 PM 12/27/2021 8:09 PM * Full Code Date Activated Date Inactivated Comments 12/15/2021 10:32 PM 12/17/2021 5:19 PM Care Teams Cotton Bag Sewer Relationship Specialty Start Date End Date Liliane Coughlin MD PCP - General Internal Medicine 12/10/20 Angus De La Vega MD Consulting Physician General Surgery 12/17/21
--- OUTSIDE RECORDS SUMMARY | 2024-12-14 10:57 | XMS_ITS | Encounter Summary ---
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
[2024-12-14 11:41] VITALS: BP 135/97; PULSE 75; RESP 20; TEMP 36.8; O2SAT 98
== END 2024-12-14 11:44 | disposition home or self-care (01) ==
PROVIDERS: Emergency Provider Emergency Medicine; PCP Internal Medicine
DX: S93.401A Sprain of unspecified ligament of right ankle, initial encounter (principal); S30.0XXA Contusion of lower back and pelvis, initial encounter; E03.9 Hypothyroidism, unspecified; I10 Essential (primary) hypertension; E78.5 Hyperlipidemia, unspecified; W13.2XXA Fall from, out of or through roof, initial encounter
CPT/HCPCS: 72100; 72170; 72220; 73610; 73630; 99284